=== PATIENT | male | born 1980 ===

== ENCOUNTER 2017-04-08 09:32 | Observation (INO) | payer OTHER ==
[2017-04-08 09:32] VITALS: BMI 29.9
[2017-04-08 10:06] VITALS: TEMP 97.7; O2SAT 95
--- NOTE | 2017-04-08 10:09 | ED PDOC ---
Arrival/HPI - General Time Seen by Provider: 04/08/17 10:05 Historian: Patient - History of Present Illness Narrative History of Present Illness (Text): 04/08/17 09:55 Sam Siddiqui is a 36 year old male who presents to the emergency department complaining of chest tightness, shortness of breath, and palpitations for two weeks. Patient states that pain is non-exertional, worsened when sits and rests, and better when he walks and exerts himself. No ripping or tearing sensation or radiation to the back. Patient has no other complaint at this time. Time/Duration: < month (2 weeks) Symptom Onset: Gradual Symptom Course: Unchanged Activities at Onset: Light Context: Home Past Medical History - Provider Review Nursing Documentation Reviewed: Yes - Infectious Disease Hx of Infectious Diseases: None - Tetanus Immunization Tetanus Immunization: Unknown - Past Medical History Past Medical History: No Previous - Psychiatric Hx Depression: No Hx Emotional Abuse: No Hx Physical Abuse: No Hx Substance Use: Yes (QUIT COCAAINE, CANNABIS) - Past Surgical History Past Surgical History: No Previous - Suicidal Assessment Feels Threatened In Home Enviroment: No Family/Social History - Physician Review Nursing Documentation Reviewed: Yes Family/Social History: No Known Family HX Smoking Status: Former Smoker Hx Alcohol Use: Yes Hx Substance Use: Yes (QUIT COCAAINE, CANNABIS) Hx Substance Use Treatment: No Allergies/Home Meds Allergies/Adverse Reactions: Allergies No Known Allergies Allergy (Verified 03/01/13 05:54) Home Medications: Home Meds Medication Instructions Recorded Confirmed No Known Home Med [No Known Home 08/02/13 04/08/17 Med] Physical Exam - Physical Exam Narrative Physical Exam (Text): - Review of Systems Constitutional: Normal. absent: Fatigue, Weight Change, Fevers Eyes: Normal ENT: Normal Respiratory: shortness of breath absent: Cough, Sputum Cardiovascular: Chest tightness. Palpitations absent: Syncope Gastrointestinal: Normal absent: Abdominal pain, Diarrhea, Nausea, Vomiting Genitourinary: Normal. absent: Dysuria, Frequency, Hematuria Musculoskeletal: Normal. absent: Arthralgias, Back Pain, Neck Pain Skin: Normal Neurological: Normal absent: Focal Weakness Endocrine: Normal Hemo/Lymphatic: Normal Psychiatric: Normal - Physical exam Patient appears age appropriate, speaking full sentences without difficulty - Systems Exam Head: Present: Atraumatic, Normocephalic Pupils: Present: PERRL Extraocular Muscles: Present: EOMI Conjunctiva: Present: Normal Mouth: Present: Moist Mucous Membranes Neck: Present: Normal Range of Motion. No: MIDLINE TENDERNESS, Paraspinal Tenderness Respiratory/Chest: Present: Clear to Auscultation, Good Air Exchange. No: Respiratory Distress, Accessory Muscle Use, Tachypnic Cardiovascular: Present: Regular Rate and Rhythm, Normal S1, S2, Peripheral Pulses Present. No: Murmurs Abdomen: Present: Normal Bowel Sounds, No: Tenderness, Peritoneal Signs, Rebound, Guarding, Distention Back: Present: Normal Inspection. No: Midline Tenderness, Paraspinal Tenderness Upper Extremity: Present: Normal Inspection. No: Cyanosis, Edema Lower Extremity: Present: Normal Inspection. No: Edema Neurological: Present: GCS=15, Speech Normal, cranial nerves II through XII fully intact with no cerebellar abnormality, neuro-sensory fully intact. No focal neurological deficits. Skin: Present: Warm, Dry, Normal Color. No: Rashes Lymphatic: Present: OX3, NI, NC Psychiatric: Present: Alert, Oriented x 3, Normal Insight, Normal Concentration Vital Signs Reviewed: Yes Vital Signs Temp Pulse Pulse Resp BP BP Pulse Ox 04/08/17 13:00 75 18 117/65 95 04/08/17 10:06 99 H 121/84 04/08/17 10:02 97.7 F 99 H 20 121/84 95 Temperature: Afebrile Blood Pressure: Normal Pulse: Tachycardic Respiratory Rate: Normal Appearance: Positive for: Well-Appearing, Non-Toxic, Comfortable Pain Distress: None Mental Status: Positive for: Alert and Oriented X 3 Medical Decision Making - Lab Interpretations Lab Results: 04/08/17 10:05 04/08/17 10:05 Lab Results 04/08/17 10:05: Sodium 142, Potassium 3.8, Chloride 107, Carbon Dioxide 22, Anion Gap 17, BUN 19, Creatinine 0.7, Est GFR ( Amer) > 60, Est GFR (Non- Af Amer) > 60, Random Glucose 102, Calcium 9.3, Total Bilirubin 0.4, AST 42, ALT 58 H, Alkaline Phosphatase 82, Lactate Dehydrogenase 492, Total Creatine Kinase 270 H, CK-MB (CK-2) 2.4, CK-MB (CK-2) % Cancelled, Troponin I < 0.01, Total Protein 7.7, Albumin 4.5, Globulin 3.2, Albumin/Globulin Ratio 1.4 04/08/17 10:05: PT 10.0, INR 0.93, APTT 25.3, D-Dimer, Quantitative 0.21 04/08/17 10:05: WBC 6.9, RBC 4.89, Hgb 15.0, Hct 43.6, MCV 89.2, MCH 30.7, MCHC 34.4, RDW 13.3, Plt Count 173, MPV 10.6, Gran % 54.9, Lymph % (Auto) 34.5, [place] % (Auto) 5.9, Eos % (Auto) 4.0, Baso % (Auto) 0.7, Gran # 3.79, Lymph # 2.4, [place] # 0.4, Eos # 0.3, Baso # 0.05 I have reviewed the lab results: Yes ED OBSERVATION Discharge: Yes Date of observation admission: 04/08/17 Time of observation admission: 10:07 - Observation admission statement Patient is being placed in observation because:: Chest pain workup - Goals of Observation Goals of observation are:: Plan: -- Chest X-ray -- Labs - Progress Note Progress Note: 36yo male with chest pain does not appear in acute distress, no abnormal PE findings Chest X-ray read and interpreted by me, which shows no cardiomegaly, no pneumothorax, no effusions. EKG shows sinus tachycardia, 105 bpm, no ST segment elevations, normal intervals. Interpreted by me. pt's HEART score low. 2 sets of cardiac enzymes and an EKG ordered Patient verbalized understanding that even if these tests are normal, symptoms may still be a warning sign of a future heart attack and it is very important for patient to arrange outpatient cardiology follow up Patient was agreeable to observation in the emergency room, and understood that this will prolong the length of stay Observation and further evaluation was offered as inpatient, but patient asked to be discharged home with outpatient follow up instead. I had a long discussion with patient that our initial evaluation has not shown evidence of a heart attack. Pt states he understands to return to the ER right away for new or worsening symptoms or for inability to f/u with PMD or specialist as instructed. Patient states that he fully agrees with and understands discharge instructions. States that he agrees with the plan and disposition. Verbalized and repeated discharge instructions and plan. I have given the patient opportunity to ask any additional questions. Encounter translated with help of pt's RN - [place] Statement The provider has reviewed the documentation as recorded by the [place] Pascal Provider Scribe Attestation: All medical record entries made by the O[facility] were at my direction and personally dictated by me. I have reviewed the chart and agree that the record accurately reflects my personal performance of the history, physical exam, medical decision making, and the department course for this patient. I have also personally directed, reviewed, and agree with the discharge instructions and disposition. Disposition/Present on Arrival - Present on Arrival Any Indicators Present on Arrival: No History of DVT/PE: No History of Uncontrolled Diabetes: No Urinary Catheter: No History Surgical Site Infection Following: None - Disposition Have Diagnosis and Disposition been Completed?: Yes Diagnosis: Chest pain Disposition: HOME/ ROUTINE Disposition Time: 10:07 Patient Plan: Observation Patient Problems: Current Active Problems Problem Status Onset Chest pain Acute Condition: STABLE
[2017-04-08 10:18] LABS: BASO # 0.05 K/mm3 (0.0-2.0); BASO % 0.7 % (0.0-3.0); EOS # 0.3 (0.0-0.7); GRAN # 3.79 (1.4-6.5); GRAN % 54.9 % (50.0-68.0); LYMPH # 2.4 (1.2-3.4); LYMPH % 34.5 % (22.0-35.0); MEAN CELL VOLUME 89.2 fL (80.0-105.0); MEAN CORPUSCULAR HEMOGLOBIN 30.7 pg (25.0-35.0); MEAN CORPUSCULAR HGB CONC 34.4 g/dl (31.0-37.0); MEAN PLATELET VOLUME 10.6 fl (7.0-11.0); MONO # 0.4 (0.1-0.6); MONO % 5.9 % (1.0-6.0); PLATELET COUNT 173 10^3/uL (120.0-450.0); RBC 4.89 10^6/uL (3.5-6.1); RED CELL DISTRIBUTION WIDTH 13.3 % (11.5-14.5); WHITE BLOOD COUNT 6.9 10^3/ul (4.5-11.0)
[2017-04-08 10:32] LABS: ALB/GLOB RATIO 1.4 (1.1-1.8); ALBUMIN 4.5 g/dL (3.0-4.8); ALT/SGPT 58 U/L (7-56); AST/SGOT 42 U/L (15-59); BLOOD UREA NITROGEN 19 mg/dL (7-21); CALCIUM 9.3 mg/dL (8.4-10.5); GFR AFRICAN-AMERICAN > 60; GFR NON-AFRICAN AMERICAN > 60
[2017-04-08 10:41] LABS: TROPONIN I < 0.01 ng/mL
[2017-04-08 10:43] LABS: INR 0.93 (0.93-1.08); PARTIAL THROMBOPLASTIN TIME 25.3 Seconds (23.7-30.8)
[2017-04-08 10:48] LABS: CK-MB 2.4 ng/mL (0.0-3.6)
[2017-04-08 10:49] LABS: D DIMER 0.21 mg/L FEU (0-0.50)
--- NOTE | 2017-04-08 11:20 | RAD ---
HISTORY: cough COMPARISON: No prior. FINDINGS: LUNGS: No active pulmonary disease. PLEURA: No significant pleural effusion identified, no pneumothorax apparent. CARDIOVASCULAR: Normal. OSSEOUS STRUCTURES: No significant abnormalities. VISUALIZED UPPER ABDOMEN: Normal. OTHER FINDINGS: None. IMPRESSION: No active disease.
[2017-04-08 13:15] VITALS: RESP 18
[2017-04-08 13:34] LABS: TROPONIN I < 0.01 ng/mL
[2017-04-08 13:37] LABS: CK-MB 1.9 ng/mL (0.0-3.6)
[2017-04-08 16:21] VITALS: BP 127/78; PULSE 72
--- NOTE | 2017-04-08 20:47 | CARD ---
APPROVED REPORT EKG Measurement Heart [id number] <Conclusion> Normal sinus rhythm Normal ECG
--- NOTE | 2017-04-08 21:07 | CARD ---
APPROVED REPORT EKG Measurement Heart [id number] <Conclusion> Sinus tachycardia Otherwise normal ECG
== END 2017-04-08 16:24 | disposition home or self-care (01) ==
LOC: ED 09:32 → EROBSV 10:07
PROVIDERS: ADMIT Emergency Medicine; ATTEND Emergency Medicine
DX: R07.9 Chest pain, unspecified (principal); Z87.891 Personal history of nicotine dependence
CPT/HCPCS: 71010; 80053; 82550; 82553; 83615; 84484; 85025; 85378; 85610; 85730; 93005; 99284; G0378